=== PATIENT | male | born 1960 | race Caucasian/White ===

== ENCOUNTER 2019-06-12 11:02 | Emergency (ER) | payer SELFPAY ==
[2019-06-12] MEDS ORDERED: ETOMIDATE 20 MG/10 ML VIAL IV ONE (11:03)
[2019-06-12] MEDS ORDERED: EPINEPHrine 1 MG/10 ML SYR IV ONE (11:03)
[2019-06-12] MEDS ORDERED: RSI MEDICATION KIT IV ONE ×2 (11:03→11:06)
[2019-06-12] MEDS ORDERED: MAGNESIUM SULF 1GM/2ML VIAL IV ONE (11:03)
[2019-06-12] MEDS ORDERED: SUCCINYLCHOLINE 20 MG/ML (10 ML) IV ONE (11:03)
[2019-06-12] MEDS ORDERED: MIDAZOLAM HCL 2 MG/2 ML INJ ONE (11:07)
[2019-06-12] MEDS ORDERED: TENECTEPLASE 50 MG/10 ML VIAL IV ONE (11:08)
[2019-06-12] MEDS ORDERED: HEPARIN/D5W 25,000 UNIT/500 ML BAG IV ONE (11:11)
[2019-06-12] MEDS ORDERED: FENTANYL CITR 100 MCG/2 ML ONE (11:14)
[2019-06-12] MEDS ORDERED: HEPARIN 5000 UNIT/ML 1 ML VIAL ONE (11:14)
[2019-06-12 11:20] LABS: Absolute Lymphocytes (CBC) 5.5 K/uL (0.7-4.9); Basophils % 0.5 % (0-1.3); Hematocrit 47.6 % (39.6-49.0); Lymphocytes % 31.4 % (15.3-44.8); MPV 8.2 fL (7.6-11.3); RBC Red Blood Cell Count 5.19 M/uL (4.33-5.43)
[2019-06-12] MEDS ORDERED: CLOPIDOGREL 75 MG TABLET ONE (11:21)
[2019-06-12 11:25] LABS: Protime INR 1.05
[2019-06-12 11:44] LABS: ALT/SGPT 33 U/L (12-78); AST/SGOT 33 U/L (15-37); Albumin 3.9 g/dL (3.4-5.0); Alkaline Phosphatase 147 U/L (45-117); BUN Blood Urea Nitrogen 11 mg/dL (7-18); Bicarbonate 20 mmol/L (21-32); Bilirubin Direct 0.2 mg/dL (0-0.2); Bilirubin Total 0.8 mg/dL (0.2-1.0); Glucose Level 208 mg/dL (74-106); Magnesium 2.1 mg/dL (1.8-2.4); NT PRO-BNP 74 pg/mL (<125); Potassium 3.4 mmol/L (3.5-5.1); Protein, Total 7.1 g/dL (6.4-8.2); Sodium Level 144 mmol/L (136-145); Troponin (Emerg Dept Use Only) < 0.02 ng/mL (0.0-0.045)
--- NOTE | 2019-06-12 11:49 | EDPHYS ---
Physician Documentation [facility] Name: Abad Carey Age: 59 yrs Sex: Male : 1960 Arrival Date: 06/12/2019 Time: 11:04 Bed 13 Private MD: ED Physician Kwasi Vo HPI: 06/12 11:41 This 59 yrs old Male presents to ER via EMS with complaints of Chest Pain > florencio 29 y/o. 11:41 The patient or guardian reports chest pain that is located primarily in the substernal florencio area, anterior chest wall, bilaterally. Onset: just prior to arrival. The pain radiates to the left arm, Associated signs and symptoms: Pertinent positives: diaphoresis, lightheadedness, near-syncope, shortness of breath. The chest pain is described as a heaviness, causing indigestion, a pressure. Modifying factors: The symptoms are alleviated by NTG, X1. application of supplemental oxygen, remaining still, the symptoms are aggravated by nothing. Severity of pain: At its worst the pain was moderate severe in the emergency department the pain has improved. Historical: - Allergies: 11:19 No Known Allergies; ss - Home Meds: 11:19 None [Active]; ss - PMHx: 11:19 None; ss - Immunization history:: Adult Immunizations unknown. - Family history:: not pertinent. - Social history:: Smoking status: Patient uses tobacco products, smokes one pack cigarettes per day. - Ebola Screening: : No symptoms or risks identified at this time. ROS: 11:41 Constitutional: Negative for fever, chills, and weight loss, Eyes: Negative for injury, florencio pain, redness, and discharge, ENT: Negative for injury, pain, and discharge, Neck: Negative for injury, pain, and swelling, Abdomen/GI: Negative for abdominal pain, nausea, vomiting, diarrhea, and constipation, Back: Negative for injury and pain, : Negative for injury, bleeding, discharge, and swelling, MS/Extremity: Negative for injury and deformity, Skin: Negative for injury, rash, and discoloration. 11:41 Cardiovascular: Positive for chest pain. 11:41 Respiratory: Positive for shortness of breath, at rest. 11:41 Skin: Positive for diaphoresis. Exam: 11:41 Head/Face: Normocephalic, atraumatic. Eyes: Pupils equal round and reactive to light, florencio extra-ocular motions intact. Lids and lashes normal. Conjunctiva and sclera are non-icteric and not injected. Cornea within normal limits. Periorbital areas with no swelling, redness, or edema. ENT: Nares patent. No nasal discharge, no septal abnormalities noted. Tympanic membranes are normal and external auditory canals are clear. Oropharynx with no redness, swelling, or masses, exudates, or evidence of obstruction, uvula midline. Mucous membranes moist. Neck: Trachea midline, no thyromegaly or masses palpated, and no cervical lymphadenopathy. Supple, full range of motion without nuchal rigidity, or vertebral point tenderness. No Meningismus. Chest/axilla: Normal chest wall appearance and motion. Nontender with no deformity. No lesions are appreciated. Respiratory: Lungs have equal breath sounds bilaterally, clear to auscultation and percussion. No rales, rhonchi or wheezes noted. No increased work of breathing, no retractions or nasal flaring. Abdomen/GI: Soft, non-tender, with normal bowel sounds. No distension or tympany. No guarding or rebound. No evidence of tenderness throughout. Back: No spinal tenderness. No costovertebral tenderness. Full range of motion. Male : Normal genitalia with no discharge or lesions. Skin: Warm, dry with normal turgor. Normal color with no rashes, no lesions, and no evidence of cellulitis. MS/ Extremity: Pulses equal, no cyanosis. Neurovascular intact. Full, normal range of motion. Neuro: Awake and alert, GCS 15, oriented to person, place, time, and situation. Cranial nerves II-XII grossly intact. Motor strength 5/5 in all extremities. Sensory grossly intact. Cerebellar exam normal. Normal gait. Psych: Awake, alert, with orientation to person, place and time. Behavior, mood, and affect are within normal limits. 11:41 Constitutional: The patient appears in obvious distress, moderately distressed. 11:41 Cardiovascular: Rate: normal, Rhythm: regular, Pulses: Pulses are 4+ in bilateral radial, brachial, femoral, popliteal, posterior tibial and and dorsalis pedis arteries.. Heart sounds: normal, Edema: is not appreciated, JVD: is not appreciated. Vital Signs: 11:00 Weight 72.57 kg; sv 11:10 BP 82 / 71; Pulse 93; Resp 20; Pulse Ox 100% ; sv 11:25 BP 86 / 67; Pulse 98; Resp 27; Pulse Ox 100% ; sv 11:30 BP 102 / 61; Pulse 86; Resp 22; Pulse Ox 100% ; sv 11:40 BP 99 / 65; Pulse 81; Resp 20; Pulse Ox 100% ; sv 11:50 BP 111 / 67; Pulse 95; Resp 24; Pulse Ox 100% on Non-rebreather mask; sv 12:00 BP 114 / 67; Pulse 97; Resp 23; Pulse Ox 100% on Non-rebreather mask; sv MDM: 11:34 Patient medically screened. [facility] 12:01 Data reviewed: vital signs, nurses notes, lab test result(s), EKG, radiologic studies, florencio plain films. 06/12 11:08 Order name: Basic Metabolic Panel; Complete Time: 11:59 [facility] 06/12 11:08 Order name: CBC with Diff; Complete Time: 11:40 [facility] 06/12 11:08 Order name: LFT's; Complete Time: 11:59 [facility] 06/12 11:08 Order name: Magnesium; Complete Time: 11:59 [facility] 06/12 11:08 Order name: NT PRO-BNP; Complete Time: 11:59 [facility] 06/12 11:08 Order name: PT-INR; Complete Time: 11:40 [facility] 06/12 11:08 Order name: Troponin (emerg Dept Use Only); Complete Time: 11:59 [facility] 06/12 11:08 Order name: XRAY Chest (1 view); Complete Time: 11:59 [facility] 06/12 11:08 Order name: EKG; Complete Time: 11:10 [facility] 06/12 11:08 Order name: Cardiac monitoring; Complete Time: 11:36 [facility] 06/12 11:08 Order name: EKG - Nurse/Tech; Complete Time: 11:35 [facility] 06/12 11:08 Order name: IV Saline Lock; Complete Time: 11:35 [facility] 06/12 11:08 Order name: Labs collected and sent; Complete Time: 11:35 [facility] 06/12 11:08 Order name: O2 Per Protocol; Complete Time: 11:36 [facility] 06/12 11:08 Order name: O2 Sat Monitoring; Complete Time: 11:32 [facility] Administered Medications: 11:00 Drug: Tenecteplase 40 mg {Co-Signature: jl7 (Stew Whitfield RN).} Route: IV; Rate: sv calculated rate; Site: right antecubital; 11:00 Drug: NS 0.9% 1000 ml Route: IV; Rate: 1000 ml; Site: right antecubital; sv 11:15 Drug: Heparin (AL-Bolus with thrombolytic) - HEParin 60 units/kg {Co-Signature: ss sv (Salud Hwang RN).} Route: IVP; Site: right antecubital; 11:30 Follow up: Response: No adverse reaction sv 11:15 Drug: Heparin (AL Drip) 12 units/kg/hr - (HEParin 80809 units, D5W 500 ml) sv {Co-Signature: jl7 (Stew Whitfield RN).} Route: IV; Rate: calculated rate; Site: right antecubital; 11:16 Drug: fentaNYL (PF) 50 mcg Route: IVP; Site: right antecubital; sv 11:19 Drug: fentaNYL (PF) 50 mcg Route: IVP; Site: right antecubital; sv 11:19 Drug: NS 0.9% 1000 ml Route: IV; Rate: 1000 ml; Site: right antecubital; sv 11:28 Drug: PlaVIX 600 mg Route: PO; sv 11:45 Follow up: Response: No adverse reaction sv 12:05 Drug: Pepcid 20 mg Route: IVP; Site: left antecubital; jl7 12:10 Follow up: Response: No adverse reaction sv 12:05 Drug: Potassium Chloride 20 mEq Route: IV; Rate: per protocol; Site: left antecubital; jl7 12:53 Not Given ([facility] at bedside): NS 0.9% with KCl 20 mEq/L 1000 ml IV at 125 ml/hr jl7 continuous Disposition: 06/12/19 11:48 Transfer ordered to [facility]. Diagnosis are Angina pectoris, ST elevation (STEMI) myocardial infarction of anterior wall, ST elevation (STEMI) myocardial infarction involving left anterior descending coronary artery, Ventricular fibrillation - resolved, Hypokalemia, Tobacco abuse counseling, Tobacco use. - Reason for transfer: Higher level of care. - [facility] - Condition is Serious. - Problem is new. - Symptoms have improved. Signatures: Dispatcher [employer] EDMS Thierno, Wendy, RN Kwasi Gresham MD MD cha Smirch, Shelby, RN RN ss Stew Whitfield RN RN jl7 Stew Whitfield RN jl7 Salud Hwang RN ss Corrections: (The following items were deleted from the chart) 11:48 11:48 06/12/2019 11:48 Transfer ordered to [facility]. Diagnosis is florencio Angina pectoris; ST elevation (STEMI) myocardial infarction of anterior wall; ST elevation (STEMI) myocardial infarction involving left anterior descending coronary artery. Reason for transfer: Higher level of care. [facility] Condition is Serious. Problem is new. Symptoms have improved. florencio 12:02 11:48 06/12/2019 11:48 Transfer ordered to [facility]. Diagnosis is florencio Angina pectoris; ST elevation (STEMI) myocardial infarction of anterior wall; ST elevation (STEMI) myocardial infarction involving left anterior descending coronary artery; Ventricular fibrillation - resolved. Reason for transfer: Higher level of care. [facility]. Condition is Serious. Problem is new. Symptoms have improved. [facility] 13:10 12:02 06/12/2019 11:48 Transfer ordered to [facility]. Diagnosis is jl7 Angina pectoris; ST elevation (STEMI) myocardial infarction of anterior wall; ST elevation (STEMI) myocardial infarction involving left anterior descending coronary artery; Ventricular fibrillation - resolved; Hypokalemia; Tobacco abuse counseling; Tobacco use. Reason for transfer: Higher level of care. Accepting physician is to [facility] dr martha salas. Condition is Serious. Problem is new. Symptoms have improved. florencio
--- NOTE | 2019-06-12 11:49 | ER ---
Nurse's Notes [facility] Name: Abad Carey Age: 59 yrs Sex: Male : 1960 Arrival Date: 06/12/2019 Time: 11:04 Bed 13 Private MD: Diagnosis: Angina pectoris;ST elevation (STEMI) myocardial infarction of anterior wall;ST elevation (STEMI) myocardial infarction involving left anterior descending coronary artery;Ventricular fibrillation-resolved;Hypokalemia;Tobacco abuse counseling;Tobacco use Presentation: 06/12 10:56 Compressions began at 10:56. sv 11:00 Presenting complaint: Patient states: Pt c/o weakness and dizziness with fall in hallway. Upon EMS arrival, patient was diaphoretic and pale,c/o substernal CP 9/10. Transition of care: patient was not received from another setting of care. Onset of symptoms was June 12, 2019. Risk Assessment: Do you want to hurt yourself or someone else? Patient reports no desire to harm self or others. Initial Sepsis Screen: Does the patient meet any 2 criteria? No. Patient's initial sepsis screen is negative. Does the patient have a suspected source of infection? No. Patient's initial sepsis screen is negative. Note Initial BP was 60/30 HR 50. Note Patient reports immediate relief from Nitro administration. Care prior to arrival: Medication(s) given: Nitroglycerin, 0.4 mg SL x 1, IV initiated. 20 GA, in the right forearm, Glucose check: 207 Patient self administered an 81 mg ASA this AM. 11:00 Acuity: JOSE 1 ss 11:00 Method Of Arrival: EMS: [facility] Triage Assessment: 10:50 General: Appears distressed, uncomfortable, ill, Behavior is cooperative. Pain: jl7 Complains of pain in mid-sternal area Pain radiates to anterior aspect of left upper chest and left arm Pain currently is 7 out of 10 on a pain scale. Quality of pain is described as pressure, radiating, squeezing, Pain began suddenly, Is continuous. Neuro: Level of Consciousness is awake, alert, obeys commands, Oriented to person, place, time, situation, Speech is normal. Cardiovascular: Reports chest pain, diaphoresis, fatigue, lightheadedness, Chest pain is described as severe, quality is pressure, squeezing, is located in left chest wall substernal area radiates to left arm(s). Respiratory: Airway is patent Respiratory effort is even, unlabored, shallow, Respiratory pattern is symmetrical, tachypnea. Derm: Skin is diaphoretic, Skin is mottled, rosenberg Skin temperature is cool. Historical: - Allergies: 11:19 No Known Allergies; ss - Home Meds: 11:19 None [Active]; ss - PMHx: 11:19 None; ss - Immunization history:: Adult Immunizations unknown. - Family history:: not pertinent. - Social history:: Smoking status: Patient uses tobacco products, smokes one pack cigarettes per day. - Ebola Screening: : No symptoms or risks identified at this time. Screenin:45 Abuse screen: unable to obtain. Nutritional screening: No deficits noted. Tuberculosis jl7 screening: No symptoms or risk factors identified. Fall Risk Total Swanson Fall Scale indicates High Risk Score (45 or more points). Fall prevention measures have been instituted. Side Rails Up X 2 1:1 Attendant Assigned Frequent Obs/Assessments Occuring. Assessment: 10:56 CPR assessment: unresponsive, no respiratory effort, Ambu ventilation. Cardiac rhythm sv is V fib. 10:56 Reassessment: VFib, shocked with 200 J. Asystole, CPR started for about a minute, pt sv gasped and wide eyed, aggressive and attempting to get out of bed. Pt able to be calmed by Dr Vo and informed of what just happend. 11:15 General: Appears uncomfortable, Behavior is cooperative. Pain: Complains of pain in sv chest. Neuro: Level of Consciousness is awake, alert, Oriented to person, situation. Cardiovascular: Rhythm is sinus rhythm. Respiratory: Respiratory effort is even, unlabored, Respiratory pattern is regular, symmetrical. 11:26 Reassessment: Pt in [place]ors[place] de pointes, shocked at 200J per Dr Vo. Magnesium 2gm sv IVP ordered to be given. 11:45 Reassessment: Pts wallet and work badge placed in pts pant pocket and all pts jl7 belongings placed in belongings bag. 11:50 General: Appears uncomfortable, Behavior is cooperative, Pt alert and talking, reports jl7 no other medical history. Pain: Complains of pain in chest Pain radiates to left arm Pain began 2 hours ago. Is continuous. 12:00 Reassessment: Pt belongings bags handed off to life flight prior to departure. jl7 Vital Signs: 11:00 Weight 72.57 kg; sv 11:10 BP 82 / 71; Pulse 93; Resp 20; Pulse Ox 100% ; sv 11:25 BP 86 / 67; Pulse 98; Resp 27; Pulse Ox 100% ; sv 11:30 BP 102 / 61; Pulse 86; Resp 22; Pulse Ox 100% ; sv 11:40 BP 99 / 65; Pulse 81; Resp 20; Pulse Ox 100% ; sv 11:50 BP 111 / 67; Pulse 95; Resp 24; Pulse Ox 100% on Non-rebreather mask; sv 12:00 BP 114 / 67; Pulse 97; Resp 23; Pulse Ox 100% on Non-rebreather mask; sv ED Course: 10:55 Maintain EMS IV. Dressing intact. Good blood return noted. Site clean \T\ dry. Gauge \T\ sv site: 20G L AC. 11:00 Patient has correct armband on for positive identification. Placed in gown. Bed in low jl7 position. Call light in reach. Side rails up X2. playground monitor on. Pulse ox on. NIBP on. 11:00 Inserted saline lock: 20 gauge in right antecubital area, using aseptic technique. sv ,using aseptic technique. done by Papito DENT Blood collected. 11:00 No provider procedures requiring assistance completed. Oxygen administration via jl7 non-rebreather mask \T\ 15L/min. 11:02 Inserted saline lock: 20 gauge in left antecubital area, using aseptic technique. sv ,using aseptic technique. done by Stew LOVE. 11:04 Patient arrived in ED. cp 11:07 Kwasi Vo MD is Attending Physician. eb 11:09 initiated a transfer with Patricia from the [facility] STEMI line/ faxed eb ekg's to [phone] and [phone]. 11:17 connected the chemical lab supervisor doctor on [facility] Jeni [place] with Kwasi GARY for patient eb transfer consultation. 11:19 Triage completed. ss 11:19 Arm band placed on right wrist. ss 11:19 Inserted saline lock: 18 gauge in left EJ, using aseptic technique. ,using aseptic sv technique. done by Dr Vo. 11:23 administrative approval given by Patricia Ramírez RN/ Patient has been accepted to the [facility] / Dr. Urbano has accepted the patient in transfer/ report to be called to the transfer line at [phone]........... [facility] called for transport per Sruthi ETA 30 minutes. 11:32 Stew Whitfield, KATE is Primary Nurse. jl7 11:39 XRAY Chest (1 view) In Process Unspecified. EDMS 12:00 Patient transferred, IV remains in place. intact. jl7 Administered Medications: 11:00 Drug: Tenecteplase 40 mg {Co-Signature: jl7 (Stew Whitfield RN).} Route: IV; Rate: sv calculated rate; Site: right antecubital; 11:00 Drug: NS 0.9% 1000 ml Route: IV; Rate: 1000 ml; Site: right antecubital; sv 11:15 Drug: Heparin (VT-Bolus with thrombolytic) - HEParin 60 units/kg {Co-Signature: sv (Salud Hwang RN).} Route: IVP; Site: right antecubital; 11:30 Follow up: Response: No adverse reaction sv 11:15 Drug: Heparin (VT Drip) 12 units/kg/hr - (HEParin 05085 units, D5W 500 ml) sv {Co-Signature: jl7 (Stew Whitfield RN).} Route: IV; Rate: calculated rate; Site: right antecubital; 11:16 Drug: fentaNYL (PF) 50 mcg Route: IVP; Site: right antecubital; sv 11:19 Drug: fentaNYL (PF) 50 mcg Route: IVP; Site: right antecubital; sv 11:19 Drug: NS 0.9% 1000 ml Route: IV; Rate: 1000 ml; Site: right antecubital; sv 11:28 Drug: PlaVIX 600 mg Route: PO; sv 11:45 Follow up: Response: No adverse reaction sv 12:05 Drug: Pepcid 20 mg Route: IVP; Site: left antecubital; jl7 12:10 Follow up: Response: No adverse reaction sv 12:05 Drug: Potassium Chloride 20 mEq Route: IV; Rate: per protocol; Site: left antecubital; jl7 12:53 [facility] NS 0.9% with KCl 20 mEq/L 1000 ml IV at 125 ml/hr jl7 continuous Outcome: 11:48 ER care complete, transfer ordered by . florencio 11:53 Transferred by helicopter to [facility], Transfer form completed. sv X-rays sent w/ patient. Note: Report called to Annabelle LOVE 11:53 Condition: stable 11:53 Instructed on the need for transfer. 13:10 Patient left the ED. jl7 Signatures: Dispatcher [employer] EDWendy Colmenares RN RN sv Kwasi Vo MD MD cha Smirch, Shelby, RN RN ss Kwasi Regalado PA PA cp Leal, Jahala, RN RN jl7 Mesha Guidry RN jl7 Salud Hwang RN ss Corrections: (The following items were deleted from the chart) 18:59 17:32 General: Appears distressed, uncomfortable, ill, Behavior is cooperative, [facility] jl7 18:59 17:32 Pain: Complains of pain in mid-sternal area Pain radiates to anterior aspect of jl7 left upper chest and left arm Pain currently is 7 out of 10 on a pain scale. Quality of pain is described as pressure, radiating, squeezing, Pain began suddenly, Is continuous, 7 18:59 17:32 Neuro: Level of Consciousness is awake, alert, obeys commands, Oriented to jl7 person, place, time, situation, Speech is normal, 7 18:59 17:32 Cardiovascular: Reports chest pain, diaphoresis, fatigue, lightheadedness, Chest jl7 pain is described as severe, quality is pressure, squeezing, is located in left chest wall substernal area radiates to left arm(s) jl7 18:59 17:32 Respiratory: Airway is patent Respiratory effort is even, unlabored, shallow, jl7 Respiratory pattern is symmetrical, tachypnea 7 18:59 17:32 Derm: Skin is diaphoretic, Skin is mottled, rosenberg Skin temperature is cool jl7 jl7 19:09 10:56 Reassessment: VFib, shocked with 200 J. sv sv
--- NOTE | 2019-06-12 11:49 | RAD REPORT ---
EXAM DESCRIPTION: RAD - Chest Single View - 06/12/2019 11:38 am CLINICAL HISTORY: Chest pain COMPARISON: None. TECHNIQUE: AP portable chest image was obtained 1131 hours . FINDINGS: Lung volumes are low. No focal mass or consolidation. No diffuse pulmonary edema. Resuscit ation paddles overlie the chest. Cardiac leads are in place. Trachea is midline. Heart and vasculatur e are normal. No measurable pleural effusion and no pneumothorax. Bony degenerative changes are prese nt at each shoulder. No acute aortic findings suspected. IMPRESSION: No acute cardiopulmonary process.
[2019-06-12] MEDS ORDERED: FAMOTIDINE 20 MG/2 ML VIAL IV ONE (12:07)
[2019-06-12] MEDS ORDERED: KCL 20 MEQ/100 mL IVPB 20 MEQ/100 ML BAG IV ONE (12:07)
[2019-06-12] MEDS ORDERED: NA CHLORIDE 0.9% 1,000 ML ONE (13:16)
[2019-06-12 13:17] VITALS: O2SAT 100
[2019-06-12 13:23] VITALS: BP 114/67
--- NOTE | 2019-06-13 06:14 | EKG ---
Test Date: 2019-06-12 Test Time: 11:10:35 Thread Twister: KRISTY MEASUREMENT RESULTS: Intervals: Rate: 90 [place]: 128 QRSD: 130 QT: 398 QTc: 486 [place]: P: 84 [place]: 128 QRS: -75 T: -6 INTERPRETIVE STATEMENTS: Normal sinus rhythm Left axis deviation Left ventricular hypertrophy with QRS widening Inferior infarct, age undetermined Anterolateral injury pattern ACUTE [place] Abnormal ECG No previous ECG available for comparison Electronically Signed On 06-13-19 06:13:41 CDT by Vickey Kingsley
--- NOTE | 2019-06-14 07:30 | EKG ---
Test Date: 2019-06-12 Test Time: 11:29:26 Stone Carriage Operator: KRISTY MEASUREMENT RESULTS: Intervals: Rate: 84 MD: 160 QRSD: 86 QT: 374 QTc: 441 [place]: P: 74 MD: 160 QRS: -16 T: -47 INTERPRETIVE STATEMENTS: Normal sinus rhythm ST elevation, consider anterolateral injury or acute infarct ACUTE [place] Abnormal ECG Compared to ECG 06/12/2019 11:22:00 Left-axis deviation no longer present Left ventricular hypertrophy no longer present ST (T wave) deviation still present Myocardial infarct finding still present Electronically Signed On 06-14-19 07:29:45 CDT by Vickey Kingsley
--- NOTE | 2019-06-14 07:30 | EKG ---
Test Date: 2019-06-12 Test Time: 11:19:16 Design Printing Machine Setter: KRISTY MEASUREMENT RESULTS: Intervals: Rate: 89 [place]: 160 QRSD: 118 QT: 420 QTc: 511 Wink: P: 65 [place]: 160 QRS: -71 T: -48 INTERPRETIVE STATEMENTS: Normal sinus rhythm Left axis deviation Left ventricular hypertrophy with QRS widening Inferior infarct, age undetermined Lateral injury pattern Prolonged QT ACUTE [place] Abnormal ECG Compared to ECG 06/12/2019 11:10:35 Prolonged QT interval now present Myocardial infarct finding still present Electronically Signed On 06-14-19 07:29:54 CDT by Vickey Kingsley
--- NOTE | 2019-06-14 07:30 | EKG ---
Test Date: 2019-06-12 Test Time: 11:22:00 Impregnator And Drier: KRISTY MEASUREMENT RESULTS: Intervals: Rate: 90 [place]: 154 QRSD: 138 QT: 406 QTc: 496 [place]: P: 74 [place]: 154 QRS: -71 T: -37 INTERPRETIVE STATEMENTS: Normal sinus rhythm Left axis deviation Left ventricular hypertrophy with QRS widening ST elevation, consider lateral injury or acute infarct ACUTE [place] Abnormal ECG Compared to ECG 06/12/2019 11:19:16 ST (T wave) deviation now present Prolonged QT interval no longer present Myocardial infarct finding still present Electronically Signed On 06-14-19 07:29:50 CDT by Vickey Kingsley
== END 2019-06-12 13:10 | disposition short-term general hospital (02) ==
LOC: ER 11:02
DX: I21.09 ST elevation (STEMI) myocardial infarction involving other coronary artery of anterior wall (principal); E87.6 Hypokalemia; Z72.0 Tobacco use; Z71.6 Tobacco abuse counseling
CPT/HCPCS: 36415; 71045; 80048; 80076; 83735; 83880; 84484; 85025; 85610; 92950; 92977; 93005; 96374; 96375; 99291; J0171; J0330; J1644; J2250; J3010; J3101; J3475; J7030